=== PATIENT | male | born 1975 | race Hispanic/Latino ===

== ENCOUNTER 2021-06-18 00:05 | Emergency (ER) | payer SELFPAY ==
[2021-06-18] MEDS ORDERED: NALOXONE 0.4 MG/1 ML INJ IV PRN (00:13)
[2021-06-18] MEDS ORDERED: TETANUS,DIPH,PERTUSS(ACELL) VACCINE 0.5 ML SYRINGE IM ONE (00:13)
[2021-06-18] MEDS ORDERED: LORazepam 2 MG/ML VIAL IM PRN (00:13)
[2021-06-18] MEDS ORDERED: HALOPERIDOL LACTATE 5 MG/1 ML INJ IM PRN (00:13)
--- NOTE | 2021-06-18 00:15 | Emergency Department Report ---
ED General Adult HPI - General Chief complaint: Altered Mental Status Stated complaint: AMS Time Seen by Provider: 06/18/21 00:13 Source: patient, EMS (Verbal report received from emergency medical services. EMS documentation not available at time of chart dictation ), RN notes reviewed Mode of arrival: Stretcher Limitations: Altered Mental Status - History of Present Illness Initial comments: This patient is a gentleman, obese, appears to be late 40s, early 50s, who was brought to the hospital by EMS with an EMS articulated complaint of presumed intoxication. Patient reportedly found by an outside gas station, with drug paraphernalia on him. EMS does not have this patient's name, but while in the emergency room, the patient stated that his name is Ben. The patient is acutely intoxicated and impaired, and agitated. He is not able to describe the qualitative nature of his symptoms, exacerbating factors relieving factors or ag gravating factors. EMS reports that they think the patient fell but they are not certain. They rep ort normal vital signs in the field and normal Accu-Chek. In the emergency room, the patient is yelling intermittently, moving 4 extremities, and ultimately required medication with haloperidol and Ativan for acquisition of appropriate time sensitive diagnostic studies -: This evening - Related Data Previous Rx's Medication Instructions Recorded Last Taken Type Naloxone HCl [Narcan Nasal Ravia] 4 mg NS PRN PRN #1 spray 06/18/21 Unknown Rx Allergies Allergy/AdvReac Type Severity Reaction Status Date / Time Unable to Assess Allergy Unverified 06/18/21 01:12 ED Review of Systems ROS: Stated complaint: AMS Other details as noted in HPI Comment: Unobtainable due to pts medical conditions ED Past Medical Hx - Medications Home Medications: Home Medications Medication Instructions Recorded Confirmed Last Taken Type Naloxone HCl [Narcan Nasal Ravia] 4 mg NS PRN PRN #1 spray 06/18/21 Unknown Rx ED Physical Exam - General Limitations: Altered Mental Status General appearance: appears intoxicated - Head Head exam: Present: normocephalic, other (There is a forehead abrasion noted) - Eye Eye exam: Present: normal appearance, PERRL, EOMI - ENT ENT exam: Present: normal exam, normal orophraynx, mucous membranes moist, normal external ear exam - Neck Neck exam: Present: normal inspection, full ROM. Absent: tenderness, meningismus - Respiratory Respiratory exam: Present: normal lung sounds bilaterally. Absent: respiratory distress, wheezes, rales, rhonchi, stridor, decreased breath sounds - Cardiovascular Cardiovascular Exam: Present: regular rate, normal rhythm, normal heart sounds. Absent: bradycardia, tachycardia, irregular rhythm, systolic murmur, diastolic murmur, rubs, gallop - GI/Abdominal GI/Abdominal exam: Present: soft. Absent: distended, tenderness, guarding, rebound, rigid, pulsatile mass - Rectal Rectal exam: Present: deferred - Extremities Exam Extremities exam: Present: other (2+ pulses noted in the bilateral upper and lower extremities. There is no palpable cord. negative Homans sign. Muscular compartments are soft. The pelvis is stable.). Absent: normal inspection (Abrasion noted to the left lower extremity), calf tenderness - Back Exam Back exam: Present: normal inspection, full ROM. Absent: tenderness, CVA tenderness (R), CVA tenderness (L), paraspinal tenderness, vertebral tenderness - Neurological Exam Neurological exam: Present: altered, other (There is no facial droop. The tongue is midline. EOMI. Moving 4 EXTR.) - Psychiatric Psychiatric exam: Present: anxious - Skin Skin exam: Present: warm, normal color, abrasion. Absent: rash ED Course Vital Signs 06/18/21 06/18/21 06/18/21 00:27 01:02 01:59 Temperature 96.7 F L Pulse Rate 46 L 47 L 53 L Respiratory 12 14 Rate Blood Pressure Blood Pressure 158/85 161/78 [Left] O2 Sat by Pulse 96 99 Oximetry 06/18/21 06/18/21 06/18/21 02:04 02:41 02:45 Temperature Pulse Rate 73 70 Respiratory 13 12 15 Rate Blood Pressure 133/81 Blood Pressure [Left] O2 Sat by Pulse 98 95 Oximetry 06/18/21 06/18/21 06/18/21 03:01 03:15 03:31 Temperature Pulse Rate 60 76 82 Respiratory 14 12 13 Rate Blood Pressure 133/81 129/86 129/86 Blood Pressure [Left] O2 Sat by Pulse 99 98 98 Oximetry 06/18/21 06/18/21 06/18/21 03:45 04:01 04:15 Temperature Pulse Rate 80 88 83 Respiratory 13 13 13 Rate Blood Pressure 116/76 116/76 149/73 Blood Pressure [Left] O2 Sat by Pulse 98 97 98 Oximetry 06/18/21 06/18/21 06/18/21 04:31 04:45 05:01 Temperature Pulse Rate 56 L 77 71 Respiratory 14 20 15 Rate Blood Pressure 149/73 149/73 149/73 Blood Pressure [Left] O2 Sat by Pulse 93 95 98 Oximetry 06/18/21 06/18/21 06/18/21 05:15 05:31 05:45 Temperature Pulse Rate 55 L 63 Respiratory 16 13 Rate Blood Pressure 151/78 151/78 105/61 Blood Pressure [Left] O2 Sat by Pulse 95 97 99 Oximetry - Reevaluation(s) Reevaluation #1: 06/18/21 03:07 Differential diagnosis, include but not limited to: Intracranial injury, cervical spine injury, pulmonary injury, pelvic injury, toxic metabolic encephalopathy, overdose Assessment and plan: 46-year-old gentleman, who was afebrile, with reassuring vital signs, protecting his airway, who appears to be intoxicated. I suspect that this patient is most likely intoxicated, or high, and impaired. His laboratory studies are unremarkable at this time. Imaging studies showed no significant traumatic injury. Patient will be held in this department pending clinical sobriety. EMS gave 2 rounds of Narcan in the field without change in mental status. Patient is not hypoxic at this time. Patient has not endorsed homicidality or suicidality, I suspect that he has chemical intoxication, and further suspect that he may likely be discharged once clinically sober. We will observe in this department pending clinical sobriety. Ifnecessary, care was transferred to the [facility] ER physician to monitor for clinical sobriety 06/18/21 03:32 Girlfriend called 911. Patient has been reported to be using recreational GHB. This is consistent with his presentation. He is breathing spontaneously at this time and protecting his airway 06/18/21 04:42 Patient still intoxicated. Patient moving 4 extremities. Patient yelling nonsensical statements. Protecting airway, hemodynamically stable at this time. Care will be transferred to the [facility] ER physician, Dr Fortino Weinberg, to reassess and discharge when clinically sober 06/18/21 05:24 Still sleeping comfortably. 06/18/21 05:59 ED Medical Decision Making - Lab Data Result diagrams: 06/18/21 00:55 06/18/21 00:55 Vital Signs 06/18/21 06/18/21 00:27 01:02 Pulse Rate 46 L 47 L Respiratory 12 Rate Blood Pressure 158/85 [Left] O2 Sat by Pulse 96 Oximetry Lab Results 06/18/21 06/18/21 06/18/21 Range/Units 00:55 00:55 00:55 WBC 15.6 H (4.5-11.0) K/mm3 RBC 4.81 (3.65-5.03) M/mm3 Hgb 14.1 (11.8-15.2) gm/dl Hct 42.7 (35.5-45.6) % MCV 89 (84-94) fl MCH 29 (28-32) pg MCHC 33 (32-34) % RDW 13.9 (13.2-15.2) % Plt Count 257 (140-440) K/mm3 PT 13.5 (12.2-14.9) Sec. INR 0.93 (0.87-1.13) Sodium 143 (137-145) mmol/L Potassium 3.6 (3.6-5.0) mmol/L Chloride 104.6 (98-107) mmol/L Carbon Dioxide 25 (22-30) mmol/L Anion Gap 17 mmol/L BUN 12 (9-20) mg/dL Creatinine 0.9 (0.8-1.3) mg/dL Estimated GFR > 60 ml/min BUN/Creatinine Ratio 13 % Glucose 107 H (75-100) mg/dL Calcium 9.0 (8.4-10.2) mg/dL Total Bilirubin 0.30 (0.1-1.2) mg/dL AST 18 (5-40) units/L ALT 18 (7-56) units/L Alkaline Phosphatase 96 (35-129) units/L Ammonia (25-60) umol/L Total Creatine Kinase 161 (55-170) units/L Total Protein 7.4 (6.3-8.2) g/dL Albumin 4.1 (3.9-5) g/dL Albumin/Globulin Ratio 1.2 % TSH (0.270-4.200) mlU/mL Salicylates (2.8-20.0) mg/dL Acetaminophen (10.0-30.0) ug/mL Plasma/Serum Alcohol (0-0.07) % 06/18/21 06/18/21 06/18/21 Range/Units 00:55 00:55 00:55 WBC (4.5-11.0) K/mm3 RBC (3.65-5.03) M/mm3 Hgb (11.8-15.2) gm/dl Hct (35.5-45.6) % MCV (84-94) fl MCH (28-32) pg MCHC (32-34) % RDW (13.2-15.2) % Plt Count (140-440) K/mm3 PT (12.2-14.9) Sec. INR (0.87-1.13) Sodium (137-145) mmol/L Potassium (3.6-5.0) mmol/L Chloride (98-107) mmol/L Carbon Dioxide (22-30) mmol/L Anion Gap mmol/L BUN (9-20) mg/dL Creatinine (0.8-1.3) mg/dL Estimated GFR ml/min BUN/Creatinine Ratio % Glucose (75-100) mg/dL Calcium (8.4-10.2) mg/dL Total Bilirubin (0.1-1.2) mg/dL AST (5-40) units/L ALT (7-56) units/L Alkaline Phosphatase (35-129) units/L Ammonia 19.0 L (25-60) umol/L Total Creatine Kinase (55-170) units/L Total Protein (6.3-8.2) g/dL Albumin (3.9-5) g/dL Albumin/Globulin Ratio % TSH 2.020 (0.270-4.200) mlU/mL Salicylates < 0.3 L (2.8-20.0) mg/dL Acetaminophen (10.0-30.0) ug/mL Plasma/Serum Alcohol (0-0.07) % 06/18/21 06/18/21 Range/Units 00:55 00:55 WBC (4.5-11.0) K/mm3 RBC (3.65-5.03) M/mm3 Hgb (11.8-15.2) gm/dl Hct (35.5-45.6) % MCV (84-94) fl MCH (28-32) pg MCHC (32-34) % RDW (13.2-15.2) % Plt Count (140-440) K/mm3 PT (12.2-14.9) Sec. INR (0.87-1.13) Sodium (137-145) mmol/L Potassium (3.6-5.0) mmol/L Chloride (98-107) mmol/L Carbon Dioxide (22-30) mmol/L Anion Gap mmol/L BUN (9-20) mg/dL Creatinine (0.8-1.3) mg/dL Estimated GFR ml/min BUN/Creatinine Ratio % Glucose (75-100) mg/dL Calcium (8.4-10.2) mg/dL Total Bilirubin (0.1-1.2) mg/dL AST (5-40) units/L ALT (7-56) units/L Alkaline Phosphatase (35-129) units/L Ammonia (25-60) umol/L Total Creatine Kinase (55-170) units/L Total Protein (6.3-8.2) g/dL Albumin (3.9-5) g/dL Albumin/Globulin Ratio % TSH (0.270-4.200) mlU/mL Salicylates (2.8-20.0) mg/dL Acetaminophen 5.0 L (10.0-30.0) ug/mL Plasma/Serum Alcohol < 0.01 (0-0.07) % Temperature is 98 degrees - EKG Data -: EKG Interpreted by Ut EKG shows normal: sinus rhythm Rate: normal - EKG Data When compared to previous EKG there are: previous EKG unavailable 06/18/21 03:04 The EKG is interpreted at 12: 37 AM Sinus rhythm, bradycardia, rate 46 bpm. Normal axis, normal P wave axis, normal intervals, and minimal motion artifact. This is an abnormal EKG. This is not a STEMI. There is no prior EKG available for comparison. - Radiology Data Radiology results: pending, report reviewed, image reviewed CT CERVICAL SPINE WITHOUT CONTRAST INDICATION / CLINICAL INFORMATION: Closed head injury, now with altered mental status. TECHNIQUE: Axial CT images were obtained through the cervical spine. Sagittal and coronal reformatted images were produced. All CT scans at this location are performed using CT dose reduction for ALARA by means of automated exposure control. COMPARISON: CT head same date FINDINGS: SKULL BASE: No significant abnormality of the skull base. CRANIOCERVICAL JUNCTION: Moderate loss of predental joint space is present. Additional osteophyte formation along the anterior ring of C1 and tip of the odontoid is noted. ALIGNMENT: No significant abnormality of alignment. VERTEBRAL BODIES: Vertebral body heights fairly uniform throughout. No acute fracture. DISK SPACES: Disk spaces are fairly uniform throughout. FACET JOINTS: Mild to moderate left facet hypertrophy demonstrated at C2-3 C3-4 C4-5 on the left CENTRAL CANAL: No severe central stenosis. SOFT TISSUES: No significant abnormality of soft tissues or musculature. THYROID: No significant abnormality. UPPER CHEST: No significant abnormality of the visualized chest. ADDITIONAL FINDINGS: None. IMPRESSION: 1. No acute cervical spine injury. No significant degenerative changes. Signer Name: Ben Galvez II, MD Signed: 06/18/2021 1:[address] HEAD WITHOUT CONTRAST INDICATION / CLINICAL INFORMATION: Closed head injury, now with altered mental status. TECHNIQUE: CT head was performed without administration of intravenous contrast. All CT scans at this location are performed using CT dose reduction for ALARA by means of automated exposure control. COMPARISON: None available. FINDINGS: CEREBRAL PARENCHYMA: Moderate motion artifact. No significant abnormality. No acute territorial infarct. HEMORRHAGE: None. EXTRA-AXIAL SPACES: Normal in size and morphology for the patient's age. VENTRICULAR SYSTEM: Normal in size and morphology for the patient's age. MIDLINE SHIFT / HERNIATION: None. CEREBELLUM / BRAINSTEM: No significant abnormality. ORBITS: No significant abnormality. SOFT TISSUES: Small right occipital scalp contusion is suggested. SKULL: No significant abnormality. PARANASAL SINUSES / MASTOID AIR CELLS: Normal as visualized. ADDITIONAL FINDINGS: None. IMPRESSION: 1. No acute intracranial abnormality. Signer Name: Ben Galvez II, MD Signed: 06/18/2021 1:36 AM Workstation Name: [facility] CHEST 1 VIEW INDICATION / CLINICAL INFORMATION: ams . COMPARISON: None available. FINDINGS: SUPPORT DEVICES: None. HEART / MEDIASTINUM: No significant abnormality. LUNGS / PLEURA: No significant pulmonary or pleural abnormality. BONES: No significant osseous abnormality. ADDITIONAL FINDINGS: No significant additional findings. IMPRESSION: 1. No active cardiopulmonary disease. Signer Name: Ben Galvez II, MD Signed: 06/18/2021 1:49 AM Workstation Name: [facility] PELVIS 1 VIEW(S) INDICATION / CLINICAL INFORMATION: fell leg abrasion COMPARISON: None available. FINDINGS: BONES / JOINT(S): No acute fracture or subluxation. No significant arthritis. SOFT TISSUES: No significant abnormality. ADDITIONAL FINDINGS: None. IMPRESSION: 1. No acute findings. Signer Name: Ben Galvez II, MD Signed: 06/18/2021 2:04 AM Workstation Name: [employer] Critical care attestation.: If time is entered above; I have spent that time in minutes in the direct care of this critically ill patient, excluding procedure time. ED Disposition Clinical Impression: Closed head injury, Abrasion, Fall, Intoxication Disposition: 30 STILL A PATIENT Is pt being admited?: No Does the pt Need Aspirin: No Condition: Good Instructions: Substance Use Disorder and Mental Illness Additional Instructions: Do not drive or operate motor vehicles for the next 6 months. Patient may take [id number] Tylenol or ibuprofen as needed for physical pain. Do not consume recreational drugs such as GHB. Recreational drug consumption may cause addiction, respiratory arrest, , disability, paralysis, and loss of quality of life. Use the Narcan medication as needed/directed. Avoid consumption of alcohol, tobacco smoke products and opioids/narcotics as well as sedating medications. Follow-up with a primary care doctor within the next week. Please return to the emergency room right away with new pain, worsened pain, migration of pain, projectile vomiting, change in mental status, confusion, inability tolerate liquid feeds, new, worsened or different symptoms not present on the initial emergency room evaluation Prescriptions: Naloxone HCl [Narcan Nasal Ravia] 4 mg NS PRN PRN #1 spray PRN Reason: Opioid Reversal Referrals: PRIMARY CARE, [Primary Care Provider] - 3-5 Days [facility] [Outside] - 3-5 Days [facility] [Outside] - 3-5 Days
[2021-06-18 01:11] LABS: Hematocrit 42.7 % (35.5-45.6); Hemoglobin 14.1 gm/dl (11.8-15.2); Mean Corpuscular HGB Conc 33 % (32-34); Mean Corpuscular Volume 89 fl (84-94); Platelet Count 257 K/mm3 (140-440); Red Blood Count 4.81 M/mm3 (3.65-5.03); Red Cell Distribution Width 13.9 % (13.2-15.2)
[2021-06-18 01:22] LABS: INR 0.93 (0.87-1.13)
[2021-06-18 01:28] LABS: Alanine Aminotransferase 18 units/L (7-56); Albumin 4.1 g/dL (3.9-5); BUN/Creatinine Ratio 13; Blood Urea Nitrogen 12 mg/dL (9-20); Hemolysis Index 3
--- NOTE | 2021-06-18 02:41 | Cat Scan Report ---
CT HEAD WITHOUT CONTRAST INDICATION / CLINICAL INFORMATION: Closed head injury, now with altered mental status. TECHNIQUE: CT head was performed without administration of intravenous contrast. All CT scans at this location are performed using CT dose reduction for ALARA by means of automated exposure control. COMPARISON: None available. FINDINGS: CEREBRAL PARENCHYMA: Moderate motion artifact. No significant abnormality. No acute territorial infar ct. HEMORRHAGE: None. EXTRA-AXIAL SPACES: Normal in size and morphology for the patient's age. VENTRICULAR SYSTEM: Normal in size and morphology for the patient's age. MIDLINE SHIFT / HERNIATION: None. CEREBELLUM / BRAINSTEM: No significant abnormality. ORBITS: No significant abnormality. SOFT TISSUES: Small right occipital scalp contusion is suggested. SKULL: No significant abnormality. PARANASAL SINUSES / MASTOID AIR CELLS: Normal as visualized. ADDITIONAL FINDINGS: None. IMPRESSION: 1. No acute intracranial abnormality. Signer Name: Ben Galvez II, MD Signed: 06/18/2021 2:36 AM Workstation Name: [id number]
--- NOTE | 2021-06-18 02:43 | Cat Scan Report ---
CT CERVICAL SPINE WITHOUT CONTRAST INDICATION / CLINICAL INFORMATION: Closed head injury, now with altered mental status. TECHNIQUE: Axial CT images were obtained through the cervical spine. Sagittal and coronal reformatted images were produced. All CT scans at this location are performed using CT dose reduction for ALARA by means of automated exposure control. COMPARISON: CT head same date FINDINGS: SKULL BASE: No significant abnormality of the skull base. CRANIOCERVICAL JUNCTION: Moderate loss of predental joint space is present. Additional osteophyte for mation along the anterior ring of C1 and tip of the odontoid is noted. ALIGNMENT: No significant abnormality of alignment. VERTEBRAL BODIES: Vertebral body heights fairly uniform throughout. No acute fracture. DISK SPACES: Disk spaces are fairly uniform throughout. FACET JOINTS: Mild to moderate left facet hypertrophy demonstrated at C2-3 C3-4 C4-5 on the left CENTRAL CANAL: No severe central stenosis. SOFT TISSUES: No significant abnormality of soft tissues or musculature. THYROID: No significant abnormality. UPPER CHEST: No significant abnormality of the visualized chest. ADDITIONAL FINDINGS: None. IMPRESSION: 1. No acute cervical spine injury. No significant degenerative changes. Signer Name: Ben Galvez II, MD Signed: 06/18/2021 2:38 AM Workstation Name: [id number]
--- NOTE | 2021-06-18 02:54 | XRay Report ---
CHEST 1 VIEW INDICATION / CLINICAL INFORMATION: ams . COMPARISON: None available. FINDINGS: SUPPORT DEVICES: None. HEART / MEDIASTINUM: No significant abnormality. LUNGS / PLEURA: No significant pulmonary or pleural abnormality. BONES: No significant osseous abnormality. ADDITIONAL FINDINGS: No significant additional findings. IMPRESSION: 1. No active cardiopulmonary disease. Signer Name: Ben Galvez II, MD Signed: 06/18/2021 2:49 AM Workstation Name: [id number]
--- NOTE | 2021-06-18 03:08 | XRay Report ---
PELVIS 1 VIEW(S) INDICATION / CLINICAL INFORMATION: fell leg abrasion COMPARISON: None available. FINDINGS: BONES / JOINT(S): No acute fracture or subluxation. No significant arthritis. SOFT TISSUES: No significant abnormality. ADDITIONAL FINDINGS: None. IMPRESSION: 1. No acute findings. Signer Name: Ben Galvez II, MD Signed: 06/18/2021 3:04 AM Workstation Name: [id number]
[2021-06-18 06:03] LABS: Bilirubin,Urine NEG (Negative); Blood,Urine SM (Negative); Color,Urine Yellow (Yellow); Mucus,Urine FEW /HPF; Protein,Urine <15 mg/dL mg/dL (Negative); Urobilinogen,Urine < 2.0 mg/dL (<2.0)
[2021-06-18 06:08] LABS: Benzodiazepines Screen,Urine Negative; Cocaine Screen,Urine Negative; Methadone Screen,Urine Negative; Opiate Screen,Urine Negative
[2021-06-18 06:19] LABS: Amphetamine Screen,Urine Positive; Cannabinoid Screen,Urine Positive
--- NOTE | 2021-06-18 11:34 | Electrocardiograph Report ---
[facility] Test Date: 2021-06-18 Test Time: 00:37:27 Pat Name: ARTEM LOUIS Department: Room: Gender: M Education Manager: [facility] : 1975 Requested By: LORENZO CARUSO Order Number: [id number] Reading MD: Rigo Forde Measurements Intervals [place] Rate: 46 P: 35 OR: 172 QRS: 74 QRSD: 95 T: 66 QT: 469 QTc: 411 Interpretive Statements Sinus bradycardia No previous ECG available for comparison Electronically Signed On 06-18-2021 11:33:46 EDT by Rigo Forde
[2021-06-18 14:54] VITALS: BP 133/73
--- NOTE | 2021-06-18 15:36 | Emergency Department Report ---
Blank Doc - Documentation Documentation: 46-year-old male presents to the hospital in the ED for over 15 hours. His cu rrent alert and awake and denies complaints. He denies allergies to medication. This was updated in the computer. UDS positive for amphetamine. Nurse instructed to discharge patient with instructions as per Dr. Hughes
== END 2021-06-18 17:53 | disposition still patient (30) ==
LOC: ED 00:05
DX: S00.91XA Abrasion of unspecified part of head, initial encounter (principal); F10.129 Alcohol abuse with intoxication, unspecified; Z79.899 Other long term (current) drug therapy; X58.XXXA Exposure to other specified factors, initial encounter; Y93.89 Activity, other specified; Y92.89 Other specified places as the place of occurrence of the external cause; Y99.8 Other external cause status
CPT/HCPCS: 36415; 70450; 71045; 72125; 72170; 80053; 80307; 81001; 82140; 82550; 84443; 85027; 85610; 90471; 90715; 93005; 96372; 99285; J1630; J2060; 80320; G0480